=== PATIENT | male | born 2000 | race Caucasian/White ===

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

== ENCOUNTER 2020-08-21 11:05 | Inpatient (IN) ==
[2020-08-21 12:51] LABS: ABS Lymphocytes 1.1 10^3/ul (1.0-4.8); ABS Monocytes 0.9 10^3/ul (0-0.8); ABS Neutrophils 11.7 10^3/ul (1.5-7.7); Eosinophil % 0.2 %; Hematocrit 43 % (42-52); Hemoglobin 14.1 g/dL (14.0-18.0); Lymphocyte % 8.3 %; Mean Corpuscular HGB Conc 33 g/dL (31-36); Mean Corpuscular Hemoglobin 21 pg (27-31); Mean Corpuscular Volume 65 fL (80-94); Mean Platelet Volume 8.7 fL (7.4-10.4); Platelet Count 263 10^3/uL (150-450); Red Blood Count 6.59 10^6 /uL (4.18-5.48); Red Cell Distribution Width 15 % (10-15); White Blood Count 13.8 10^3/uL (3.5-10.8)
[2020-08-21 13:05] LABS: ALT 18 U/L (7-52); AST 24 U/L (13-39); Albumin 4.9 g/dL (3.2-5.2); Albumin/Globulin Ratio 1.8 (1-3); Alkaline Phosphatase 64 U/L (34-104); Anion Gap 7 mmol/L (2-11); BUN/Creatinine Ratio 10.4 (8-20); Blood Urea Nitrogen 10 mg/dL (6-24); CO2 Carbon Dioxide 27 mmol/L (22-32); Calcium 9.4 mg/dL (8.6-10.3); Chloride 102 mmol/L (101-111); EGFR African American 118.5 (>60); EGFR Non-African American 97.9 (>60); Globulin 2.7 g/dL (2-4); Glucose 96 mg/dL (70-100); Magnesium 2.5 mg/dL (1.9-2.7); Sodium 136 mmol/L (135-145); Total Protein 7.6 g/dL (6.4-8.9); Troponin I 0.01 ng/mL (<0.03)
[2020-08-21 13:27] LABS: Microcytosis 1+
[2020-08-21 13:44] LABS: TSH Ultra Thyroid Stim Horm 1.08 mcIU/mL (0.34-5.60)
[2020-08-21 13:50] LABS: Urine Appearance Cloudy; Urine Bilirubin Negative (Negative); Urine Blood 1+ (Negative); Urine Color Yellow; Urine Glucose Negative (Negative); Urine Ketones Negative (Negative); Urine Nitrite Negative (Negative); Urine Protein Negative (Negative); Urine Specific Gravity 1.015 (1.010-1.030); Urine Urobilinogen Negative (Negative)
[2020-08-21 13:55] LABS: Urine Bacteria Absent (Absent); Urine Red Blood Cell Trace(0-2/hpf) (Absent); Urine White Blood Cell Absent (Absent)
[2020-08-21 14:12] LABS: Urine Benzodiazepine Screen None Detected (None Detect); Urine Cannabinoids Screen None Detected (None Detect); Urine Opiates Screen None Detected (None Detect)
[2020-08-21] MEDS ORDERED: HYDROcodone/ACETAMIN 5/325 mg TAB PO ONE (15:14)
[2020-08-21] MEDS ORDERED: fentaNYL 100 mcg/2 ml 50 MCG/ML VIAL IV SLOW PU ONE ×2 (15:36→17:23)
[2020-08-21] MEDS ORDERED: Midazolam 10 mg/10 ml VIAL 1 mg/ml 10 ml VIAL (10 mg) IV SLOW PU ONE (17:23)
[2020-08-21] MEDS ORDERED: Ondansetron 4 mg VIAL 2 MG/ML 2 ml VIAL IV ONE (17:43)
[2020-08-21] MEDS ORDERED: Gadoteridol (CONTRAST) 279.3 MG/ML 10 ML IV ONE (18:32)
[2020-08-21 20:29] LABS: Alcohol, S < 10 mg/dL (<10)
[2020-08-22] MEDS: HYDROcodone/ACETAMIN 5/325 mg TAB PO PRN ×4 (00:49→23:41)
[2020-08-22 04:53] LABS: ABS Eosinophils 0.1 10^3/ul (0-0.6); ABS Lymphocytes 1.3 10^3/ul (1.0-4.8); ABS Neutrophils 6.4 10^3/ul (1.5-7.7); Hematocrit 36 % (42-52); Hemoglobin 11.6 g/dL (14.0-18.0); Lymphocyte % 15.3 %; Mean Corpuscular HGB Conc 32 g/dL (31-36); Mean Corpuscular Hemoglobin 21 pg (27-31); Mean Corpuscular Volume 65 fL (80-94); Mean Platelet Volume 8.8 fL (7.4-10.4); Platelet Count 222 10^3/uL (150-450); Red Blood Count 5.52 10^6 /uL (4.18-5.48); Red Cell Distribution Width 15 % (10-15); White Blood Count 8.8 10^3/uL (3.5-10.8)
[2020-08-22 05:01] LABS: BUN/Creatinine Ratio 9.3 (8-20); EGFR African American 104.6 (>60); EGFR Non-African American 86.4 (>60)
[2020-08-23 05:52] LABS: INR 1.16 (0.82-1.09)
[2020-08-23] MEDS ORDERED: levETIRAcetam 500 MG IVPREMIX 500 MG/100 ML BAG IV ONE (07:43)
[2020-08-23] MEDS: NS 0.9% 1000 ml BAG 1,000 ML IV SCH (11:56)
[2020-08-23] MEDS: Morphine 2 MG/ML SYRINGE IV PRN (12:00)
[2020-08-23] MEDS: HYDROcodone/ACETAMIN 5/325 mg TAB PO PRN ×2 (15:34→23:43)
[2020-08-24] MEDS: Morphine 2 MG/ML SYRINGE IV PRN ×2 (03:06→07:53)
[2020-08-24] MEDS ORDERED: levETIRAcetam 500 MG IVPREMIX 500 MG/100 ML BAG IV ONE (07:32)
[2020-08-24] MEDS ORDERED: ceFAZolin 2 GM PREMIX 2 GM/50 ML BAG ONE (09:05)
[2020-08-24] MEDS ORDERED: Lidocaine 2% PF 5 ML VIAL ONE ×2 (09:23→09:24)
[2020-08-24] MEDS ORDERED: Propofol 10 MG/ML 20 ML BTL ONE (09:23)
[2020-08-24] MEDS ORDERED: Midazolam 2 mg/2 ml VIAL 1 mg/ml 2 ml VIAL (2 mg) ONE ×2 (09:23→11:05)
[2020-08-24] MEDS ORDERED: Succinylcholine 200 mg VIAL 20 mg/ml 10 ml VIAL (200 mg) ONE (09:23)
[2020-08-24] MEDS ORDERED: ROPIVACAINE 5 MG/ML 30 ML BTL (0.5%) ONE (09:24)
[2020-08-24] MEDS ORDERED: fentaNYL 100 mcg/2 ml 50 MCG/ML VIAL ONE (09:24)
[2020-08-24] MEDS ORDERED: Dexmedetomidine 200 mcg/2 ml 2 ml VIAL (200 mcg) ONE (09:25)
[2020-08-24] MEDS ORDERED: Rocuronium 50 mg VIAL 10 mg/ml 5 ml VIAL (50 mg) ONE ×2 (09:26→13:32)
[2020-08-24] MEDS ORDERED: Phenylephrine 40 mcg/mL 10mL (400mcg) SYRINGE ONE (11:31)
[2020-08-24] MEDS ORDERED: ceFAZolin VIAL VIAL ONE (12:09)
[2020-08-24] MEDS ORDERED: Vancomycin 1,000 MG VIAL ONE (12:16)
[2020-08-24] MEDS ORDERED: Naloxone 0.4 mg VIAL 0.4 mg/ml 1 ml VIAL IV PRN (12:43)
[2020-08-24] MEDS ORDERED: fentaNYL 100 mcg/2 ml 50 MCG/ML VIAL IV PRN (12:43)
[2020-08-24] MEDS ORDERED: DiMENhydriNATE IV 50 mg/ml 1 ml VIAL IV PUSH PRN (12:43)
[2020-08-24] MEDS ORDERED: Ondansetron 4 mg VIAL 2 MG/ML 2 ml VIAL ONE (12:45)
[2020-08-24] MEDS ORDERED: Dexamethasone IV 4 MG/ML VIAL 1 ml VIAL ONE (12:45)
[2020-08-24] MEDS ORDERED: Acetaminophen IV 1 GM/100ML 100 ML ONE (15:35)
[2020-08-24] MEDS: NS 0.9% 1000 ml BAG 1,000 ML IV SCH (20:42)
[2020-08-24] MEDS: HYDROcodone/ACETAMIN 5/325 mg TAB PO PRN (22:38)
[2020-08-25] MEDS: HYDROcodone/ACETAMIN 5/325 mg TAB PO PRN ×2 (03:59→10:49)
[2020-08-25 13:51] VITALS: BP 117/72
== END 2020-08-25 15:45 | disposition home or self-care (01) | DRG 26 ==
LOC: EDSEX → ED 11:05 → MEDTELE 11:05 → MERGE 18:04 → MEDTELE 21:21 → MED 08-24 20:16
PROVIDERS: ADMIT Internal Medicine; ATTEND Internal Medicine